=== PATIENT | male | born 1995 | race African-American/Black ===

== ENCOUNTER 2017-01-18 18:15 | Emergency (ER) | payer BC ==
[~2017-01-18] VITALS: Ht 165.1 cm; Wt 65.0 kg
[2017-01-18] MEDS ORDERED: ONDANSETRON 4MG ODT PO PRN (22:15)
[2017-01-18] MEDS ORDERED: KETOROLAC 30MG/ML VIAL IM NR (22:15)
[2017-01-19 00:29] VITALS: BP 131/76
== END 2017-01-19 00:46 | disposition home or self-care (01) ==
LOC: ER 22:36
DX: S16.1XXA Strain of muscle, fascia and tendon at neck level, initial encounter (principal); S00.93XA Contusion of unspecified part of head, initial encounter; J45.909 Unspecified asthma, uncomplicated; V49.88XA Car occupant (driver) (passenger) injured in other specified transport accidents, initial encounter; Y93.89 Activity, other specified; Y92.89 Other specified places as the place of occurrence of the external cause; Y99.8 Other external cause status
CPT/HCPCS: 72125; 96372; 99284; J1885; Q0162; L0172